=== PATIENT | female | born 1930 | race African-American/Black ===

== ENCOUNTER 2016-10-25 19:56 | Inpatient (IN) | payer MEDICARE, OTHER ==
--- NOTE | ~2016-10-25 | DS ---
Discharge Summary [facility] [address] [place]. [address] NAME: FRANKIE CUADRA : [birth year] STATUS : DIS IN PAT#: [id number] AGE: 86 ADM/REG DATE : 10/25/16 MR#: [id number] REPORT SERV DATE: 12/31/16 DICTATED BY: JANET ODELL DATE: 12/30/16 REPORT STATUS : Draft TRANSCRIBED BY: MODKatie DATE: 12/30/16 ADMISSION DATE: 10/25/2016 DISCHARGE DATE: 11/02/2016 ADMITTED FOR: Altered mental status. She came from [facility] where she had been a resident for the past six years. She was found to be dehydrated which deteriorated her renal failure to the point that urine a revealed a GFR of 15. She was treated as well for UTI. During her stay at the hospital, she required full call for all of her ADLs and is in bed with dementia with a FAST score of 7A and PPS 30% being bed bound and incontinent of bowel and bladder. The decision was made to refer her for comfort focus care under the hospice benefit. She was discharged from the hospital back to [facility] under the care of [facility] on 11/02/2016. Please see discharge orders and medical records for discharge medications, allergies, etc. PREM/ROSANA Janet Odell M.D. / [id number] CC: Yeimi Hudson M.D.
--- NOTE | ~2016-10-25 | DS ---
Discharge Summary [facility] [address] [place]. [address] NAME: FRANKIE CUADRA : [birth year] STATUS : DIS IN PAT#: [id number] AGE: 86 ADM/REG DATE : 10/25/16 MR#: [id number] REPORT SERV DATE: 12/17/16 DICTATED BY: BRIGITTE ROSADO DATE: 12/16/16 REPORT STATUS : Draft TRANSCRIBED BY: MODL DATE: 12/16/16 ADMISSION DATE: 10/25/2016 DISCHARGE DATE: 11/02/2016 HOSPITAL COURSE: An 86-year-old woman was admitted with Alzheimer's dementia, jail resident for six years prior to admission on the for altered mental status. She was found to be severely dehydrated with acute on chronic renal failure. GFR did not recover despite appropriate measures of rehydration. Nephrology was consulted. The patient was a DNR code status even before she entered the hospital, and after an adequate trial of appropriate treatment, the patient did not improve. FAST score in the setting of dementia was 7A. Decision was made to transfer her to hospice care for end-of-life care, and she was discharged on 11/02/2016 to [facility] and transferred upon discharge to the [facility] care center in [facility]. Please see discharge orders for medications. at the [facility]. LEANDRO/ROSANA Brigitte Rosado M.D. / [id number] CC: Yeimi Hudson M.D.
--- NOTE | ~2016-10-25 | HP ---
History And Physical [place] [id number] [facility] [place]. [address] NAME: FRANKIE CUADRA : [birth year] STATUS : ADM IN PAT#: [id number] AGE: 86 ADM/REG DATE : 10/25/16 MR#: [id number] REPORT SERV DATE: 10/27/16 DICTATED BY: MARIE BLEVINS DATE: 10/26/16 REPORT STATUS : Draft TRANSCRIBED BY: MODL DATE: 10/26/16 DATE OF ADMISSION: 10/25/2016 Dictated by Karen De La Vega, nurse practitioner. CHIEF COMPLAINT: Altered mental status. HISTORY OF PRESENT ILLNESS: The patient is an 86-year-old female who was transferred to [facility] Emergency Department from [facility] for altered mental status. Patient with history of dementia, hypertension, IDDM, and chronic kidney disease, stage II to III. Patient found to have altered mental status with decreased p.o. intake, was sent to [facility] Emergency Department for further the evaluation. Patient with altered mental status; therefore, unable to obtain complete medical, family, and social history. Most information obtained from review of medical records from [facility] and from nursing staff as well as the patient's granddaughter at the bedside. ALLERGIES: HYDROCODONE AND METOCLOPRAMIDE FROM [facility]. CODE STATUS: The patient, per family member, is do not resuscitate with limited therapy, okay with IV fluids and antibiotic therapy. MEDICATION: Reviewed home medications, plan to continue current home medications except for Tylenol, insulin short acting and long acting, Singular, multiple vitamins, and also we will plan to discontinue the current torsemide and losartan given the patient's current renal status. PAST MEDICAL HISTORY: To include hypertension; IDDM; anemia secondary to chronic disease; GERD; gait impairment; aortic stenosis; peripheral neuropathy; chronic kidney disease, stage II to III; TIAs; osteoarthritis of the hands; breast mass with negative biopsy; hyperlipidemia; dementia; hearing loss; history of pneumonia; and history of heel ulcer. PAST SURGICAL HISTORY: Include cholecystectomy, hysterectomy, lumbar spine surgery, right knee surgery, and breast biopsy. SOCIAL HISTORY: The patient resides at [facility] for approximately 6 years. She is , does have a son, the patient is [employer], former smoker, no drinking, and worked as a cook. REVIEW OF SYSTEMS: Unable to obtain a complete medical, family, and social history secondary to patient's decreased mental status, able to have some clarification from patient's granddaughter at the bedside who reports the patient's mental status had declined over the past few days to include her p.o. intake. The patient's granddaughter reports that her p.o. intake has not been great but has significantly declined in the past few days. History And Physical [address] [address] NAME: FRANKIE CUADRA : [birth year] STATUS : ADM IN PAT#: [id number] AGE: 86 ADM/REG DATE : 10/25/16 MR#: [id number] REPORT SERV DATE: 10/27/16 DICTATED BY: MARIE BLEVINS DATE: 10/26/16 REPORT STATUS : Draft TRANSCRIBED BY: ROSANA DATE: 10/26/16 PHYSICAL EXAMINATION: VITAL SIGNS: Temperature ranges from 96.2 to 97.4, pulse ranges from 93 to 114, heart rate of 96, respiratory rate ranged from 16 to 20, BP systolic ranged from 138 to 182 with the most current that was 168/71, and O2 saturation 100%. GENERAL: The patient was an elderly female, lethargic but did open eyes with stimulation. She moaned with pain. HEENT: Oral mucosa appeared to be moist. Eyes, pupils were equal, round, and reactive to light and nonicteric bilaterally. NECK: No JVD noted. CHEST: No chest deformity noted. LUNGS: Clear to auscultation bilaterally with symmetrical expansion. CVS: Regular rate and rhythm, normal S1 and S2, and no murmurs noted. ABDOMEN: Soft and nontender. Positive bowel sounds noted. : Patient with adult diaper with a recent positive soiled diaper. EXTREMITY: No edema noted in bilateral upper and lower extremities. Noted generalized arthritic changes. Noted right lower arms with peripheral IV access without redness or edema noted. IMAGING: Chest x-ray on 10/25/2016 revealed low lung volume and bibasilar atelectasis. Bladder scan, per nursing reports, postvoid of 100 mL today. IV fluid at 100 mL/h. LABORATORY DATA: Sodium of 149, potassium of 5.5, chloride of 120, CO2 of 19, BUN of 57, and creatinine of 3.46 which is some improvement from yesterday of 3.59. Glucose of 74, WBC of 9.2, hemoglobin of 9.0, hematocrit of 27.6, and platelet of 219. AST of 13, bilirubin of 0.2, total protein of 6.7, ALT of 15, albumin of 2.5, and alkaline phosphate of 109. IMPRESSION: 1. Encephalopathy, likely infectious in origin/metabolic. 2. Pyuria. 3. Hypernatremia. 4. Hyperkalemia. 5. Hypertension. 6. Hypoglycemia, likely secondary to poor p.o. intake. 7. Acute kidney injury on chronic kidney disease, stage IV. 8. History of insulin-dependant diabetes mellitus. 9. History of anemia secondary to chronic disease. 10.Gastroesophageal reflux disease. 11.Gait impairment. 12.Alzheimer's dementia. 13.History of chronic obstructive pulmonary disease with acute exacerbation. 14.History of peripheral diabetic neuropathy. PLAN: History And Physical [address] [address] NAME: FRANKIE CUADRA : [birth year] STATUS : ADM IN [facility]#: [id number] AGE: 86 ADM/REG DATE : 10/25/16 MR#: [id number] REPORT SERV DATE: 10/27/16 DICTATED BY: MARIE BLEVINS DATE: 10/26/16 REPORT STATUS : Draft TRANSCRIBED BY: ROSANA DATE: 10/26/16 1. Reviewed the treatment plan of care with family member at the bedside to include current IV antibiotic regimen, IV fluids, continued laboratory studies, and possible nephrology consult if renal function does not improve or worsened. Questions answered. Re-addressed code status and desires to continue current code status of DNR/comfort measure with limited intervention to continue such as IV fluid and antibiotic therapy. 2. Patient with a.m. sodium of 149, plan to change IV fluid to D5 at 1/2 normal saline at 100 mL/h x1 L, then decreased to 75 mL/h. We will also recheck laboratory study in the a.m. to ensure electrolytes are improved as well as creatinine improved. Consider Kayexalate if potassium continues to increase to greater than 5.8. The patient is at risk for cardiac arrhythmia. 3. Consider Nephrology consult if renal function worsened despite IV therapy. We will discontinue current torsemide and Cozaar given that could be renal toxic. The patient is at risk for worsening JACQUI, hemodialysis. 4. We will continue current regimen of Rocephin for possible UTI. The patient's urinalysis was reviewed which is positive. Urine culture pending at this time. I will follow up urine culture results in the a.m. if needed to adjust the antimicrobial therapy. The patient is at risk for sepsis. 5. We will closely monitor blood pressure. The patient's a.m. blood pressure as well as p.m. blood pressure is elevated likely secondary to the patient not being able to take p.o. medications given the patient's current mental status. We will plan to continue the current regimen of amlodipine once the patient is awake, but we continue to keep amlodipine and hydralazine p.o. as scheduled if in case the patient started to wake up, but however, we will add on hydralazine 10 mg IV q.6 hours p.r.n. for elevated blood pressure such as systolic of greater than 160 and diastolic greater than 95. The patient is at risk for CVA. 6. We will closely monitor blood sugar. Patient with history of IDDM, likely secondary to poor p.o. intake. She has been hypoglycemic, we will change IV fluid to D5 and monitor blood sugar. We will place the patient on electrolyte protocol. The patient is at risk of further hypoglycemia/acute myocardial infarction. 7. Patient with history of anemia likely secondary to chronic disease with admission hemoglobin at 9.0 and hematocrit at 27.6, we will continue to monitor H and H as the patient is at risk for hypoxia with low H and H. 8. We will continue Lyrica for history of neuropathic pain management. 9. We will continue iron supplement as scheduled b.i.d. 10.We will monitor improvement of mental status. If needed, we will have nursing to assist patient with p.o. intake to ensure the patient p.o. intake is consistent. The patient is at risk for worsening hypoglycemia and dehydration. 11.We will keep the patient at bedrest for now, maintain vital signs at q.4 hours with parameters to call MD per admission protocol. 12.We will continue to monitor saturation O2 q.2 hours, continue nasal cannula to maintain sat O2 greater or equal to 90%. 13.We will continue ADA diet, 1800 calorie, as tolerated if patient is awake. 14.We will continue Ativan IV, morphine IV, and Zofran IV p.r.n. for management of any anxiety, pain, and any complaint of nausea and vomiting. History And Physical [address] [place]. [address] NAME: FRANKIE CUADRA : [birth year] STATUS : ADM IN PAT#: [id number] AGE: 86 ADM/REG DATE : 10/25/16 MR#: [id number] REPORT SERV DATE: 10/27/16 DICTATED BY: MARIE BLEVINS DATE: 10/26/16 REPORT STATUS : Draft TRANSCRIBED BY: ROSANA DATE: 10/26/16 JOSÉ/ROSANA Marie Blevins M.D. / [id number]
--- NOTE | ~2016-10-25 | CN ---
Consultation Report [facility] [address] [place]. [address] NAME: FRANKIE CUADRA : [birth year] STATUS : ADM IN PAT#: [id number] AGE: 86 ADM/REG DATE : 10/25/16 MR#: [id number] REPORT SERV DATE: 10/27/16 DICTATED BY: DATE: REPORT STATUS : Draft TRANSCRIBED BY: MODKatie DATE: 10/27/16 CONSULTATION REPORT DATE OF CONSULTATION: REASON FOR CONSULTATION: Acute kidney injury. HISTORY OF PRESENT ILLNESS: Ms Cuadra is an 86-year-old black female who resides at [facility] with Alzheimer's dementia, CKD, stage IV. She is brought to the emergency department for altered mental status since last Wednesday. According to the son with her Alzheimer's dementia, she has never really oriented to him, but will awaken and basically be agitated and interact in some way. She does have periods where she sleeps for a couple of days, but then will awake up. They noticed when she was not waking up this time that there was something different, therefore, that prompted emergency room visit. She is known to have CKD baseline and was in the 2's several years ago. She has had multiple episodes of acute renal failure in the past with altered mental status. She presented to the hospital, creatinine is 3.7, potassium is high. She is acidotic. She has not eaten since last Wednesday. She is having some urine output, but cannot be quantified as she is incontinent of urine and we have been asked to see her. The son is unaware of any recent viral illnesses with nausea, vomiting, or diarrhea. He is unaware of any fevers, chills, or shortness of breath. He states she never has problems with edema. PAST MEDICAL HISTORY: CKD, Alzheimer's dementia, diabetes, hypertension, recurrent UTIs, hyperlipidemia, osteoarthritis, TIA, CVA, cholecystectomy, and right knee replacement with hysterectomy. SOCIAL HISTORY: She lives at [facility]. Son states he visits her daily. Has a history of tobacco. No alcohol or illicit drug use. FAMILY MEDICAL HISTORY: No end-stage renal disease. ALLERGIES: NONE. MEDICATIONS: At the long-term; amlodipine, Caltrate, vitamin D, Catapres, ferrous sulfate, hydralazine, GenTeal, losartan, Singulair, multivitamin, Lyrica, and Exelon. Demadex and losartan have been held. She is also on Rocephin here. REVIEW OF SYSTEMS: Unable to obtain from the patient as she is currently altered. PHYSICAL EXAMINATION: VITAL SIGNS: Temp 97.1, blood pressure 162/84, pulse 63, respiratory rate 16, and O2 saturation is 100%. GENERAL: This is an elderly black female who is not responsive and did not open eyes, has Consultation Report [address] [place]. [address] NAME: FRANKIE CUADRA : [birth year] STATUS : ADM IN PAT#: [id number] AGE: 86 ADM/REG DATE : 10/25/16 MR#: [id number] REPORT SERV DATE: 10/27/16 DICTATED BY: DATE: REPORT STATUS : Draft TRANSCRIBED BY: MODKatie DATE: 10/27/16 snoring respirations. HEENT: Pupils are equal and round. Oral mucosa is very dry. NECK: No lymphadenopathy. Neck veins are flat. RESPIRATIONS: Even and unlabored. Breath sounds are clear to auscultation. HEART: Rate is regular. No murmur, rub, or gallop. ABDOMEN: Soft. BACK: I could not examine back. EXTREMITIES: No edema. SKIN: No unusual rashes or skin lesions. NEURO: Could not be performed. PERTINENT LAB AND X-RAYS: Sodium 148, potassium 5.7, chloride 122, CO2 16, BUN 57, creatinine of 3.7, and calcium of 8.3. Urine culture negative. WBCs 9.2, H and H 9 and 27, and platelets 219,000. Chest x-ray, negative. IMPRESSION: 1. Acute kidney injury. 2. Chronic kidney disease, stage IV. 3. Hyperkalemia. 4. Metabolic encephalopathy. 5. Metabolic acidosis. 6. Alzheimer's dementia. 7. Hypertension. 8. Diabetes. PLAN/RECOMMENDATION: Acute kidney injury secondary to dehydration. Agree with hydration. We will change IV fluids and add some sodium bicarbonate, hopefully, this will help with her hyperkalemia. I agree with holding of ARB and diuretic. We will follow along with labs, I's and O's. Check PVR. I agree with DNR status. She is not a dialysis candidate and the son, who is at bedside, is agreeable. We will follow along with labs and I's and O's with you. Further orders and recommendations pending clinical course. NATIVIDAD/MODL CARINA Tate / [id number] CC: Yeimi Hudson M.D.
[2016-10-25 19:36] LABS: ASCORBIC ACID (UR NOT ORDER) NEG (NEG); BILIRUBIN, URINE NEGATIVE (NEG); ER URINALYSIS TAT 0 Hrs 16 Mins; KETONE, URINE NEGATIVE (NEG); LEUKOCYTE ESTERASE(NOT OR LARGE (NEG); NITRITE (URINE) NEG (NEG)
[2016-10-25 19:37] LABS: WBC (NOT ORDERED) (RFLEX) > 182 (0-5)
[~2016-10-25 19:56] MED LIST: APRES25 PO; ATACAND; CALTRA600D PO; CAT1 PO; CATAPRES2 TOP; CATAPRES3 TOP; CATPATCH1 TOP; COZAAR100 MG PO; DEMA10T PO; DEMADEX5 MG PO; DUONEB INH; EXELON9.5T TOP; FERROUS SULF325 M1 PO; GENTEAL 15 ML O15 ML OPH; GENTEAL OPH; GLUCOPHAGE1000 MG PO; INSULIN; IRON325 MG PO; L40 PO; LANTUS SC; LEVEMIR SC; LISINOPRIL; LYRICA50 PO; MELA3 PO; MULTIPLE VIT PO; MULTIVIT/MIN PO; NEUR300 PO; NEUR600 PO; NITROQUICK0.4 MG SL; NORCO1 TA1 PO; NORV5 PO; NOVOLOG SC; NOVOPENMIX SC; PEP20 PO; PRAVAC PO; PRIN20 PO; REFRESH1 % OP; SINGULAIR1 PO; T PO; VITAMIN D31000 UNIT PO; ZANTAC 150 PO; ZANTAC150 MG PO
[2016-10-25 20:11] LABS: BASOPHILS 0.1 %; BASOPHILS ABSOLUTE 0.01 10/3/uL (0.0-0.16); EOSINOPHILS 0.8 %; HEMATOCRIT 27.9 % (36.0-48.0); HEMOGLOBIN 9.1 g/dL (12.0-16.0); IMMATURE GRANULOCYTES 0.2 %; IMMATURE GRANULOCYTES ABSOLUTE 0.02 10/3/uL (0.0-0.11); LYMPHOCYTES 19.7 %; LYMPHOCYTES ABSOLUTE 2.47 10/3/uL (0.67-4.30); MEAN CORPUS HGB CONC 32.6 g/dL (32.0-36.0); MEAN CORPUSCULAR HEMOGLOB 27.4 pg (26.0-34.0); MEAN PLATELET VOLUME 9.9 fL (9.2-13.0); MONOCYTES 4.5 %; MONOCYTES ABSOLUTE 0.57 10/3/uL (0.21-1.20); NEUTROPHILS 74.7 %; NEUTROPHILS ABSOLUTE 9.38 10/3/uL (2.02-8.40); PLATELET COUNT 220 10/3/uL (150-400); RBC DISTRIBUTION WIDTH 15.3 % (12.0-16.0); RED CELL COUNT 3.32 10/6/uL (4.0-5.6)
[2016-10-25 20:12] LABS: MANUAL DIFF NO %; WHITE BLOOD CELLS 12.6 10/3/uL (4.5-10.5)
[2016-10-25 20:28] LABS: A/G RATIO 0.6 (0.7-1.9); ALBUMIN 2.5 G/DL (3.5-5.0); ALKALINE PHOSPHATASE 109 U/L (45-117); BUN (BLOOD UREA NITROGEN) 62 MG/DL (6-23); CALCIUM, SERUM 9.5 MG/DL (8.5-10.4); CHLORIDE, SERUM 117 MMOL/L (96-112); CO2 (CARBON DIOXIDE) 22 MMOL/L (24-34); GLOBULIN 4.2 G/DL (2.5-4.1); POTASSIUM, SERUM 5.5 MMOL/L (3.5-5.3); SGOT(AST) 13 U/L (5-40); SGPT(ALT) 15 U/L (5-65); SODIUM, SERUM 148 MMOL/L (135-148); TOTAL BILIRUBIN 0.2 MG/DL (0-1.2); TOTAL PROTEIN 6.7 G/DL (6.0-8.5); TROPONIN I <0.02 NG/ML (<0.05)
[2016-10-25 20:29] LABS: CREATININE 3.59 MG/DL (0.55-1.02); GFR AFRICAN AMERICAN 12 ML/MIN (>=60); GFR NON AFRICAN AMERICAN 11 ML/MIN (>=60); GLUCOSE, SERUM 78 MG/DL (60-99)
[2016-10-26 09:29] LABS: BASOPHILS 0 %; EOSINOPHILS 1.1 %; HEMATOCRIT 27.6 % (36.0-48.0); IMMATURE GRANULOCYTES 0.3 %; IMMATURE GRANULOCYTES ABSOLUTE 0.03 10/3/uL (0.0-0.11); LYMPHOCYTES 27.3 %; LYMPHOCYTES ABSOLUTE 2.51 10/3/uL (0.67-4.30); MANUAL DIFF NO %; MEAN CORPUS HGB CONC 32.6 g/dL (32.0-36.0); MEAN CORPUSCULAR HEMOGLOB 27.2 pg (26.0-34.0); MEAN CORPUSCULAR VOLUME 83.4 fL (80-100); MEAN PLATELET VOLUME 9.5 fL (9.2-13.0); MONOCYTES 8.3 %; MONOCYTES ABSOLUTE 0.76 10/3/uL (0.21-1.20); PLATELET COUNT 219 10/3/uL (150-400); RBC DISTRIBUTION WIDTH 15.6 % (12.0-16.0); RED CELL COUNT 3.31 10/6/uL (4.0-5.6); WHITE BLOOD CELLS 9.2 10/3/uL (4.5-10.5)
[2016-10-26 09:40] LABS: BUN (BLOOD UREA NITROGEN) 57 MG/DL (6-23); CALCIUM, SERUM 9.1 MG/DL (8.5-10.4); CHLORIDE, SERUM 120 MMOL/L (96-112); CO2 (CARBON DIOXIDE) 19 MMOL/L (24-34); CREATININE 3.46 MG/DL (0.55-1.02); GFR AFRICAN AMERICAN 13 ML/MIN (>=60); GFR NON AFRICAN AMERICAN 11 ML/MIN (>=60); GLUCOSE, SERUM 74 MG/DL (60-99); POTASSIUM, SERUM 5.5 MMOL/L (3.5-5.3); SODIUM, SERUM 149 MMOL/L (135-148)
[2016-10-27 08:00] LABS: BUN (BLOOD UREA NITROGEN) 57 MG/DL (6-23); CALCIUM, SERUM 8.3 MG/DL (8.5-10.4); CHLORIDE, SERUM 122 MMOL/L (96-112); CO2 (CARBON DIOXIDE) 16 MMOL/L (24-34); GFR AFRICAN AMERICAN 12 ML/MIN (>=60); GFR NON AFRICAN AMERICAN 10 ML/MIN (>=60); POTASSIUM, SERUM 5.7 MMOL/L (3.5-5.3); SODIUM, SERUM 148 MMOL/L (135-148)
[2016-10-27 08:01] LABS: GLUCOSE, SERUM 158 MG/DL (60-99)
[2016-10-28 05:01] LABS: BASOPHILS 0.1 %; BASOPHILS ABSOLUTE 0.01 10/3/uL (0.0-0.16); EOSINOPHILS 1.3 %; HEMATOCRIT 29.2 % (36.0-48.0); HEMOGLOBIN 9.5 g/dL (12.0-16.0); IMMATURE GRANULOCYTES ABSOLUTE 0.23 10/3/uL (0.0-0.11); LYMPHOCYTES 29.5 %; LYMPHOCYTES ABSOLUTE 2.23 10/3/uL (0.67-4.30); MANUAL DIFF NO %; MEAN CORPUS HGB CONC 32.5 g/dL (32.0-36.0); MEAN CORPUSCULAR HEMOGLOB 28.1 pg (26.0-34.0); MEAN CORPUSCULAR VOLUME 86.4 fL (80-100); MEAN PLATELET VOLUME 9.8 fL (9.2-13.0); MONOCYTES 9.4 %; MONOCYTES ABSOLUTE 0.71 10/3/uL (0.21-1.20); NEUTROPHILS 56.7 %; NEUTROPHILS ABSOLUTE 4.29 10/3/uL (2.02-8.40); PLATELET COUNT 236 10/3/uL (150-400); RBC DISTRIBUTION WIDTH 15.2 % (12.0-16.0); RED CELL COUNT 3.38 10/6/uL (4.0-5.6); WHITE BLOOD CELLS 7.6 10/3/uL (4.5-10.5)
[2016-10-28 05:08] LABS: ALBUMIN 2.7 G/DL (3.5-5.0); CALCIUM, SERUM 8.7 MG/DL (8.5-10.4); CHLORIDE, SERUM 117 MMOL/L (96-112); CO2 (CARBON DIOXIDE) 17 MMOL/L (24-34); CREATININE 3.38 MG/DL (0.55-1.02); GFR AFRICAN AMERICAN 13 ML/MIN (>=60); GFR NON AFRICAN AMERICAN 12 ML/MIN (>=60); GLUCOSE, SERUM 170 MG/DL (60-99); POTASSIUM, SERUM 5.4 MMOL/L (3.5-5.3); SODIUM, SERUM 145 MMOL/L (135-148)
[2016-10-28 05:10] LABS: BUN (BLOOD UREA NITROGEN) 50 MG/DL (6-23)
[2016-10-29 06:37] LABS: BASOPHILS 0.1 %; BASOPHILS ABSOLUTE 0.01 10/3/uL (0.0-0.16); EOSINOPHILS 1.7 %; EOSINOPHILS ABSOLUTE 0.12 10/3/uL (0.0-0.53); HEMATOCRIT 27.8 % (36.0-48.0); HEMOGLOBIN 9.3 g/dL (12.0-16.0); IMMATURE GRANULOCYTES 1.9 %; IMMATURE GRANULOCYTES ABSOLUTE 0.14 10/3/uL (0.0-0.11); LYMPHOCYTES 28.3 %; LYMPHOCYTES ABSOLUTE 2.05 10/3/uL (0.67-4.30); MEAN CORPUS HGB CONC 33.5 g/dL (32.0-36.0); MEAN CORPUSCULAR HEMOGLOB 28.2 pg (26.0-34.0); MEAN CORPUSCULAR VOLUME 84.2 fL (80-100); MEAN PLATELET VOLUME 9.6 fL (9.2-13.0); MONOCYTES ABSOLUTE 0.65 10/3/uL (0.21-1.20); NEUTROPHILS ABSOLUTE 4.27 10/3/uL (2.02-8.40); PLATELET COUNT 235 10/3/uL (150-400); WHITE BLOOD CELLS 7.2 10/3/uL (4.5-10.5)
[2016-10-29 06:46] LABS: ALBUMIN 2.6 G/DL (3.5-5.0); CALCIUM, SERUM 8.7 MG/DL (8.5-10.4); CHLORIDE, SERUM 110 MMOL/L (96-112); CO2 (CARBON DIOXIDE) 19 MMOL/L (24-34); CREATININE 3.14 MG/DL (0.55-1.02); GFR AFRICAN AMERICAN 15 ML/MIN (>=60); GFR NON AFRICAN AMERICAN 13 ML/MIN (>=60); GLUCOSE, SERUM 181 MG/DL (60-99); PHOSPHORUS, SERUM 2.4 MG/DL (2.5-4.5); SODIUM, SERUM 141 MMOL/L (135-148)
[2016-10-29 06:49] LABS: BUN (BLOOD UREA NITROGEN) 44 MG/DL (6-23)
[2016-10-29 06:52] LABS: MANUAL DIFF NO %
[2016-11-02] MEDS ORDERED: CATAPRES2 TOP (12:01)
[2016-11-02] MEDS ORDERED: REFRESH OPH SO0.3 ML OPH (12:03)
[2016-11-02] MEDS ORDERED: ATV.5 PO/SL (12:06)
== END 2016-11-02 19:15 | disposition hospice, inpatient (51) | DRG 640 ==
LOC: ER 19:56 → 4EA 21:49
PROVIDERS: Emergency Medicine; Family Medicine; Internal Medicine Nephrology; Nurse Practitioner Acute Care
DX: E86.0 Dehydration (principal); G93.41 Metabolic encephalopathy; N17.9 Acute kidney failure, unspecified; N18.4 Chronic kidney disease, stage 4 (severe); E87.0 Hyperosmolality and hypernatremia; E87.2 Acidosis; G30.9 Alzheimer's disease, unspecified; F02.80 Dementia in other diseases classified elsewhere, unspecified severity, without behavioral disturbance, psychotic disturbance, mood disturbance, and anxiety; I12.9 Hypertensive chronic kidney disease with stage 1 through stage 4 chronic kidney disease, or unspecified chronic kidney disease; E11.22 Type 2 diabetes mellitus with diabetic chronic kidney disease; E87.5 Hyperkalemia; R62.7 Adult failure to thrive; D63.1 Anemia in chronic kidney disease
CPT/HCPCS: 70450; 71010; 80048; 80053; 80069; 81001; 82962; 83735; 84484; 85025; 87086; 93005; 99285; A9270-GY; J0360